=== PATIENT | male | born 1985 | race Hispanic/Latino ===

== ENCOUNTER 2024-10-03 17:38 | Emergency (ER) | payer OTHER ==
[~2024-10-03 17:38] MED LIST: Iopamidol 300 61% 100 ML VIAL FS ONE
[2024-10-03] MEDS ORDERED: Nitroglycerin 2% Ointment 1 INCH/1 GM Packet ONE (18:20)
[2024-10-03] MEDS ORDERED: Nitroglycerin 0.4mg/Hour PATCH ONE (18:22)
[2024-10-03 18:45] LABS: #Basophils 0.03 10x3/uL (0.0-0.2); #Eosinophils 0.06 10x3/uL (0.0-0.5); #Monocytes 0.46 10x3/uL (0.0-1.1); #Neutrophils 8.16 10x3/uL (1.5-8.4); %Basophils 0.3 % (0.0-2.0); %Eosinophils 0.6 % (0.0-6.0); %Lymphocytes 16.1 % (18.0-47.0); %Monocytes 4.4 % (0.0-10.0); %Neutrophils 78.1 % (40.0-75.0); Hematocrit 44.9 % (38.8-50.0); Mean Corpuscular HGB CONC 33.4 g/dL (32.0-36.0); Mean Corpuscular Hemoglobin 29.7 pg (27.0-33.0); Mean Corpuscular Volume 88.9 fL (81.2-95.1); Mean Platelet Volume 11.2 fL (7.4-10.4); Platelet Count 303 10x3/uL (150-450); RBC Distribution Width 13.4 % (11.5-14.5); Red Blood Cell (RBC) Count 5.05 10x6/uL (4.32-5.72); White Blood Cell (WBC) Count 10.44 10x3/uL (3.5-10.5)
[2024-10-03 19:06] LABS: ALT (SGPT) 34 U/L (8-55); AST (SGOT) 22 U/L (5-34); Albumin 3.9 g/dL (3.5-5.0); Alkaline Phosphatase 147 U/L (40-110); Anion Gap 14 mmol/L (10-20); BUN (Urea Nitrogen) 9 mg/dL (8.9-20.6); Bilirubin, Total 0.5 mg/dL (0.2-1.2); Calc. Creatinine Clearance 0 mL/min (70-130); Carbon Dioxide 18 mmol/L (22-29); Chloride 110 mmol/L (98-107); Estimated GFR 122; Globulin 3.6 g/dL (2.4-3.5); Glucose 94 mg/dL (70-105); Lipase 21 U/L (8-78); Potassium 4.2 mmol/L (3.5-5.1); Protein, Total 7.5 g/dL (6.0-8.3); Sodium 138 mmol/L (136-145)
[2024-10-03 19:11] LABS: Troponin I Less than 0.010 ng/mL (< 0.028)
[2024-10-03] MEDS ORDERED: Ketorolac Tromethamine 30 MG (1 mL) VIAL ONE (19:40)
[2024-10-03] MEDS ORDERED: Morphine 4 MG/ML VIAL ONE (19:40)
[2024-10-03] MEDS ORDERED: Ondansetron PF 4 MG/2 ML Vial ONE (19:40)
== END 2024-10-03 20:52 ==
LOC: CSHERS 17:38 → EEVIPCON 17:38 → CSHERS 20:52
DX: R07.9 Chest pain, unspecified (principal); R11.2 Nausea with vomiting, unspecified; R10.31 Right lower quadrant pain; R10.11 Right upper quadrant pain; I10 Essential (primary) hypertension
CPT/HCPCS: 36415; 71045; 74177; 80053; 83690; 84484; 85025; 93005; 94760; 96374; 96375; J1885; J2270; J2405; Q9967